=== PATIENT | female | born 1965 | race Caucasian/White ===

== ENCOUNTER 2016-12-17 07:20 | Day surgery (SDC) | payer OTHER ==
[~2016-12-17] VITALS: Ht 180.3 cm; Wt 103.2 kg
[~2016-12-17 07:20] MED LIST: ACETAMINOPHEN 325 MG TABLET PO PRN; FURO20 PO; GABA-531 PO; HUM10VIA SQ; LISI-661 PO; METF500T4 PO
[2016-12-17] MEDS ORDERED: PHENYLEPHRINE HCL 2.5% 2 ML OPHTHALMIC SOLUTION ONE (07:39)
[2016-12-17] MEDS ORDERED: RINGERS SOLUTION,LACTATED 500 ML IV ONE ×2 (07:39→09:00)
[2016-12-17] MEDS ORDERED: CYCLOPENTOLATE HCL 1% 2 ML OPHTHALMIC SOLUTION ONE (07:39)
[2016-12-17] MEDS ORDERED: TROPICAMIDE 1% 2 ML OPHTHALMIC SOLUTION ONE (07:39)
[2016-12-17] MEDS ORDERED: FLURBIPROFEN SODIUM 0.03% 2.5 ML OPHTHALMIC SOLUTION ONE (07:39)
[2016-12-17 08:46] LABS: GLUCOSE,POINT OF CARE 226 MG/DL (70-110)
[2016-12-17] MEDS: FLURBIPROFEN SODIUM 0.03% 2.5 ML OPHTHALMIC SOLUTION OD SCH ×3 (08:48→09:09)
[2016-12-17] MEDS: TROPICAMIDE 1% 2 ML OPHTHALMIC SOLUTION OD SCH ×3 (08:48→09:09)
[2016-12-17] MEDS: PHENYLEPHRINE HCL 2.5% 2 ML OPHTHALMIC SOLUTION OD SCH ×3 (08:49→09:09)
[2016-12-17] MEDS: CYCLOPENTOLATE HCL 1% 2 ML OPHTHALMIC SOLUTION OD SCH ×3 (08:49→09:09)
[2016-12-17 10:28] LABS: GLUCOSE,POINT OF CARE 179 MG/DL (70-110)
[2016-12-17] MEDS ORDERED: FentaNYL CITRATE-PF 100 MCG/2 ML VIAL IVP ONE (23:41)
[2016-12-17] MEDS ORDERED: MIDAZOLAM HCL 2 MG/2 ML VIAL IVP ONE (23:41)
== END 2016-12-17 11:15 | disposition home or self-care (01) ==
LOC: SURGERY 07:20
PROVIDERS: ATTEND Ophthalmology
DX: E11.36 Type 2 diabetes mellitus with diabetic cataract (principal); H25.811 Combined forms of age-related cataract, right eye; I10 Essential (primary) hypertension; E66.9 Obesity, unspecified; Z79.4 Long term (current) use of insulin
CPT/HCPCS: 66984; 82962; 93005; C1780; J2250; J3010; J7120

== ENCOUNTER 2018-01-31 13:13 | Emergency (ER) | payer OTHER ==
[~2018-01-31] VITALS: Ht 180.3 cm; Wt 95.0 kg
[~2018-01-31 13:13] MED LIST changes: -ACETAMINOPHEN 325 MG TABLET PO PRN; -METF500T4 PO; +METF500T6 PO
[2018-01-31] MEDS ORDERED: HYDR-2924 PO (13:17)
[2018-01-31] MEDS ORDERED: ASPI-556 PO (13:17)
[2018-01-31] MEDS ORDERED: FERR-89 PO (13:17)
[2018-01-31] MEDS ORDERED: ATOR20TA86 PO (13:17)
[2018-01-31] MEDS ORDERED: LINA5TAB PO (13:17)
[2018-01-31] MEDS ORDERED: AMLO-511 PO (13:17)
[2018-01-31] MEDS ORDERED: GLIP5 PO (13:17)
[2018-01-31] MEDS ORDERED: LOSA50TA37 PO (13:17)
[2018-01-31] MEDS ORDERED: BACITRACIN 0.9 GM PACKET OINTMENT TP ONE (14:30)
[2018-01-31 14:46] LABS: CALCIUM, TOTAL 8.9 mg/dL (8.8-10.5); CREATININE 2.52 mg/dL (0.60-1.30); POTASSIUM 4.5 mmol/L (3.5-5.1)
[2018-01-31 14:53] LABS: ALBUMIN 3.1 g/dL (3.4-5.0); BILIRUBIN,TOTAL 0.3 mg/dL (0.1-1.0); TOTAL PROTEIN, SERUM 7.1 g/dL (6.4-8.2)
[2018-01-31 14:55] LABS: BASOPHILS % (AUTO) 0.6 % (0.0-2.0); EOSINOPHILS % (AUTO) 2.5 % (1.0-6.0); HEMATOCRIT 27.4 % (36-46); LYMPHOCYTES # (AUTO) 1.3 K/uL (1.0-4.8); LYMPHOCYTES % (AUTO) 21.5 % (22.0-44.0); MEAN CORPUSCULAR HEMOGLOBIN 27.5 pg (26.0-34.0); MEAN CORPUSCULAR HGB CONC 32.8 G/dL (31.0-37.0); MEAN CORPUSCULAR VOLUME 84 fL (80-100); MONOCYTES # (AUTO) 0.5 K/uL (0.1-1.0); MONOCYTES % (AUTO) 7.4 % (2.0-9.0); NEUTROPHILS # (AUTO) 4.2 K/uL (1.8-7.7); PLATELET COUNT (AUTO) 175 K/uL (150-450); RED BLOOD CELL COUNT(AUTO) 3.26 MIL/uL (4.00-5.20)
[2018-01-31 15:26] VITALS: BP 133/77
[2018-01-31] MEDS ORDERED: AMOX TR/POT CLAV 875 MG/125 MG TABLET PO ONE (15:45)
== END 2018-01-31 16:04 | disposition home or self-care (01) ==
LOC: EMS 13:14
DX: L03.031 Cellulitis of right toe (principal); E78.00 Pure hypercholesterolemia, unspecified; I12.9 Hypertensive chronic kidney disease with stage 1 through stage 4 chronic kidney disease, or unspecified chronic kidney disease; E11.22 Type 2 diabetes mellitus with diabetic chronic kidney disease; N18.9 Chronic kidney disease, unspecified; Z79.899 Other long term (current) drug therapy
CPT/HCPCS: 99285

== ENCOUNTER 2018-05-23 10:48 | Emergency (ER) | payer OTHER ==
[~2018-05-23] VITALS: Ht 180.3 cm; Wt 140.4 kg
[~2018-05-23 10:48] MED LIST changes: +AMLO-511 PO; +ASPI-556 PO; +ATOR20TA86 PO; +FERR-89 PO; +GLIP5 PO; +HYDR-2924 PO; +LINA5TAB PO; -LISI-661 PO; +LOSA50TA25 PO; -METF500T6 PO
[2018-05-23 11:17] VITALS: BP 142/82
[2018-05-23 11:18] LABS: GLUCOSE,POINT OF CARE 301 MG/DL (70-110)
[2018-05-23] MEDS ORDERED: LIDOCAINE 5% TRANSDERMAL PATCH TD ONE (11:45)
[2018-05-23 12:00] LABS: BASOPHILS % (AUTO) 0.4 % (0.0-2.0); EOSINOPHILS % (AUTO) 2.8 % (1.0-6.0); LYMPHOCYTES # (AUTO) 1.4 K/uL (1.0-4.8); LYMPHOCYTES % (AUTO) 22.9 % (22.0-44.0); MEAN CORPUSCULAR HEMOGLOBIN 27.7 pg (26.0-34.0); MEAN CORPUSCULAR HGB CONC 32.3 G/dL (31.0-37.0); MEAN CORPUSCULAR VOLUME 86 fL (80-100); MONOCYTES # (AUTO) 0.4 K/uL (0.1-1.0); MONOCYTES % (AUTO) 5.9 % (2.0-9.0); NEUTROPHILS # (AUTO) 4.1 K/uL (1.8-7.7); PLATELET COUNT (AUTO) 194 K/uL (150-450); RED BLOOD CELL COUNT(AUTO) 3.26 MIL/uL (4.00-5.20); RED CELL DISTRIBUTION WIDTH 16.4 % (11.5-14.5)
[2018-05-23 12:07] LABS: APPEARANCE,URINE CLEAR (CLEAR); BILIRUBIN,URINE NEGATIVE (NEGATIVE); GLUCOSE, URINE (UA) 250 mg/dL (NEGATIVE); KETONES,URINE NEGATIVE (NEGATIVE); LEUKOCYTE ESTERASE ,URINE NEGATIVE (NEGATIVE); NITRATE,URINE NEGATIVE (NEGATIVE); OCCULT BLOOD,URINE NEGATIVE (NEGATIVE); PROTEIN,URINE TRACE (NEGATIVE); UROBILINOGEN,URINE 0.2 mg/dL (<=1.0)
[2018-05-23 12:17] LABS: CALCIUM, TOTAL 8.5 mg/dL (8.8-10.5); POTASSIUM 4.4 mmol/L (3.5-5.1)
[2018-05-23 12:17] LABS: BACTERIA,URINE Rare /HPF (None Seen); RBC,URINE 0-2 /HPF (0-2); SQUAMOUS EPITHELIAL CELL,UR Few /LPF (None Seen); WBC,URINE 0-2 /HPF (0-5)
[2018-05-23 12:22] LABS: ALBUMIN 3.1 g/dL (3.4-5.0); BILIRUBIN,TOTAL 0.2 mg/dL (0.1-1.0); TOTAL PROTEIN, SERUM 7.1 g/dL (6.4-8.2)
== END 2018-05-23 13:21 | disposition home or self-care (01) ==
LOC: EMS 10:48
DX: M54.5 Low back pain (principal); D64.9 Anemia, unspecified; E11.22 Type 2 diabetes mellitus with diabetic chronic kidney disease; I12.9 Hypertensive chronic kidney disease with stage 1 through stage 4 chronic kidney disease, or unspecified chronic kidney disease; N18.9 Chronic kidney disease, unspecified; E78.00 Pure hypercholesterolemia, unspecified; Z79.82 Long term (current) use of aspirin; Z79.4 Long term (current) use of insulin; Z79.899 Other long term (current) drug therapy

== ENCOUNTER 2019-06-15 11:32 | Emergency (ER) | payer OTHER ==
[~2019-06-15] VITALS: Ht 180.3 cm; Wt 100.0 kg
[~2019-06-15 11:32] MED LIST changes: -AMLO-511 PO; +AMLO5TAB9 PO; -LOSA50TA25 PO; +LOSA50TA64 PO
[2019-06-15] MEDS ORDERED: PERTUSS(ACELL),DIPH,TET VAC/PF 0.5 ML VIAL IM ONE (12:30)
[2019-06-15] MEDS ORDERED: BACITRACIN 0.9 GM PACKET OINTMENT TP ONE (12:30)
[2019-06-15 13:47] VITALS: BP 141/71
== END 2019-06-15 14:25 | disposition home or self-care (01) ==
LOC: EMS 11:34
DX: S80.01XA Contusion of right knee, initial encounter (principal); E11.9 Type 2 diabetes mellitus without complications; E78.00 Pure hypercholesterolemia, unspecified; I10 Essential (primary) hypertension; Z79.899 Other long term (current) drug therapy; Z79.82 Long term (current) use of aspirin; Z91.040 Latex allergy status; W01.0XXA Fall on same level from slipping, tripping and stumbling without subsequent striking against object, initial encounter; Y93.01 Activity, walking, marching and hiking; Y92.89 Other specified places as the place of occurrence of the external cause; Y99.8 Other external cause status
CPT/HCPCS: 90471; 90715

== ENCOUNTER 2021-02-24 11:19 | Emergency (ER) | payer OTHER ==
[~2021-02-24] VITALS: Ht 175.3 cm; Wt 100.0 kg
[~2021-02-24 11:19] MED LIST changes: +AMLO-257 PO; -AMLO5TAB9 PO; +GABA-1181 PO; -GABA-531 PO; -HYDR-2924 PO; +HYDR50TA36 PO; +LOSA50TA37 PO; -LOSA50TA64 PO
[2021-02-24 11:29] VITALS: BP 132/68
== END 2021-02-24 16:38 | disposition left against medical advice (07) ==
LOC: EMS 11:19
DX: E11.621 Type 2 diabetes mellitus with foot ulcer (principal); L97.521 Non-pressure chronic ulcer of other part of left foot limited to breakdown of skin; E78.00 Pure hypercholesterolemia, unspecified; I10 Essential (primary) hypertension; Z91.040 Latex allergy status; Z79.82 Long term (current) use of aspirin; Z79.899 Other long term (current) drug therapy
CPT/HCPCS: 99283